=== PATIENT | female | born 1965 | race Caucasian/White ===

== ENCOUNTER 2021-02-16 22:31 | Emergency (ER) | payer BC ==
[~2021-02-16] VITALS: Ht 162.6 cm; Wt 96.0 kg
[2021-02-16] MEDS ORDERED: KETOROLAC 30MG/ML VIAL IV STA (23:07)
[2021-02-16 23:23] LABS: BASOPHILS % 0.8 % (0.0-2.0); EOSINOPHILS % 0.4 % (0.0-5.0); HEMATOCRIT. 41.2 % (36.0-48.0); HEMOGLOBIN. 13.9 g/dL (12.0-16.0); LYMPHOCYTES % 29.2 % (20.0-50.0); MEAN CORPUSCULAR HEMOGLOBIN 28.8 pg (28.0-32.0); MEAN CORPUSCULAR VOLUME 85.6 fL (81.0-99.0); MEAN PLATELET VOLUME 7.9 fl (7.4-10.4); MONOCYTES % 7.2 % (2.0-8.0); NEUTROPHILS % 62.4 % (40.0-76.0); PLATELET 358 x1000/uL (130-400); RED BLOOD CELL COUNT 4.82 mill/uL (4.2-5.4); RED CELL DISTRIBUTION WIDTH 13.5 % (11.6-14.6)
[2021-02-16 23:29] LABS: CHLORIDE 106 mEq/L (98-107)
[2021-02-16 23:32] LABS: PROTHROMBIN TIME 10.7 sec (9.6-11.0)
[2021-02-16 23:44] LABS: HCG SCREEN NEGATIVE
[2021-02-17] MEDS ORDERED: HYDROCODONE/ACETAMINOPHEN 5/325MG TABLET PO SCH (00:23)
[2021-02-17 00:45] LABS: CLARITY URINE CLEAR (CLEAR); COLOR URINE YELLOW (YELLOW); KETONES URINE NEGATIVE (NEGATIVE); LEUKOCYTE ESTERASE URINE NEGATIVE (NEGATIVE); NITRITE URINE NEGATIVE (NEGATIVE); OCCULT BLOOD URINE NEGATIVE (NEGATIVE); PROTEIN URINE NEGATIVE (NEGATIVE)
[2021-02-17] MEDS ORDERED: IBUP-2028 MT (02:56)
[2021-02-17] MEDS ORDERED: DOCU-138 MT (02:56)
[2021-02-17] MEDS ORDERED: METR500T MT (02:56)
[2021-02-17] MEDS ORDERED: CIPR-263 MT (02:56)
[2021-02-17 03:10] VITALS: BP 135/74
== END 2021-02-17 03:10 | disposition home or self-care (01) ==
LOC: ER 22:31
DX: K57.92 Diverticulitis of intestine, part unspecified, without perforation or abscess without bleeding (principal); I10 Essential (primary) hypertension; E11.9 Type 2 diabetes mellitus without complications; Z98.890 Other specified postprocedural states
CPT/HCPCS: 36415; 74176; 80053; 81003; 83690; 84703; 85025; 85610; 93005; 96374; 99285; J1885